=== PATIENT | female | born 1990 | race Two or more races ===

== ENCOUNTER 2020-11-27 20:21 | Emergency (ER) | payer SELFPAY ==
[~2020-11-27] VITALS: Ht 170.2 cm; Wt 65.0 kg
[~2020-11-27 20:21] MED LIST: ACET-704 PO; IBUP-1060 PO; PREN1TAB86 PO
[2020-11-27 21:13] VITALS: BP 108/60
--- NOTE | 2020-11-28 00:45 | PHYS DOC ---
Past Medical History Past Surgical History: No Surgical History (SAADIA SALOMON APRN) General Adult EDM: Chief Complaint: VAGINAL BLEEDING HPI: HPI: Patient is a 30 year old female who presents with fell last week she has been having scant lopez of blood in her underwear and then today began having lower abdominal pain cramping that she rates at a 7 out of 10 with menstrual type amount of bleeding. She is not going through more than one pad an hour. She has not taken anything for her abdominal discomfort. Last menstrual period was October 14. She denies nausea, vomiting, fever, concern for STD, urinary symptom, chest pain, shortness of breath, headache, dizziness. This is her fifth . She has 3 living children with uncomplicated pregnancies. She had one miscarriage with the very first . 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 (SAADIA SALOMON APRN) Review of Systems: Review of Systems: Constitutional: Denies fever or chills. [] Eyes: Denies change in visual acuity. [] HENT: Denies nasal congestion or sore throat. [] Respiratory: Denies cough or shortness of breath. [] Cardiovascular: Denies chest pain or edema. [] GI: + Lower abdominal pain, denies nausea, vomiting, bloody stools or diarrhea. [] : Denies dysuria. + Vaginal bleeding [] Musculoskeletal: Denies back pain or joint pain. [] Integument: Denies rash. [] Neurologic: Denies headache, focal weakness or sensory changes. [] Endocrine: Denies polyuria or polydipsia. [] Lymphatic: Denies swollen glands. [] Psychiatric: Denies depression or anxiety. [] (SAADIA SALOMON APRN) Heart Score: C/O Chest Pain: No (SAADIA SALOMON AMORTIZATION CLERK) Allergies: Allergies: Allergies Coded Allergies Type Severity Reaction Last Updated Verified No Known Drug Allergies 12/06/14 No (SAADIA SALOMON AMORTIZATION CLERK) Physical Exam: PE: Constitutional: Well developed, well nourished, no acute distress, non-toxic appearance. [] HENT: Normocephalic, atraumatic, bilateral external ears normal, oropharynx moist, no oral exudates, nose normal. [] Eyes: PERRLA, EOMI, conjunctiva normal, no discharge. [] Neck: Normal range of motion, no tenderness, supple, no stridor. [] Cardiovascular:Heart rate regular rhythm, no murmur [] Lungs & Thorax: Bilateral breath sounds clear to auscultation [] Abdomen: Bowel sounds normal, soft, no tenderness, no masses, no pulsatile masses. [] Skin: Warm, dry, no erythema, no rash. [] Back: No tenderness, no CVA tenderness. [] Extremities: No tenderness, no cyanosis, no clubbing, ROM intact, no edema. [] Neurologic: Alert and oriented X 3, normal motor function, normal sensory function, no focal deficits noted. [] Psychologic: Affect normal, judgement normal, mood normal. [] Normal physical exam (SAADIA SALOMON APRN) Current Patient Data: Vital Signs: Vital Signs Date Time Temp Pulse Resp B/P (MAP) Pulse Ox O2 Delivery O2 Flow Rate FiO2 11/27/20 21:13 98.4 67 18 108/60 (76) 100 Room Air 98.4 (SAADIA SALOMON APRN) EKG: EKG: [] (SAADIA SALOMON APRN) Radiology/Procedures: Radiology/Procedures: [] (SAADIA SALOMON APRN) Impression: [id number] [facility] [place], [place] [id number] IMAGING REPORT Signed PATIENT: ARIEL PAULSON ACCOUNT: [id number] : 1990 LOCATION: ER AGE: 30 SEX: F EXAM STATUS: REG ER ORD. PHYSICIAN: SAADIA SALOMON APRN REASON: vaginasl bleeding in . LMP 10/14 PROCEDURE: OB TRANSVAG CLINICAL HISTORY: Reason: vaginasl bleeding in . LMP 10/14 / Spl. Instructions: / History: COMPARISON: None available. TECHNIQUE: transabdominal and endovaginal sonography was performed FINDINGS: An intrauterine gestational sac is present, normal in appearance. An embryo is identified .Cardiac activity is visualized and documented at a rate of 117 beats per minute. There is no subchorionic fluid collection. Based on a crown rump length averaging 0.45 cm, the estimated gestational age is 6 weeks, 1 days. Estimated date of delivery is 07/23/2021. The right ovary measures 2.7 x 1.6 x 1.5 cm. Left ovary was not visualized. There is no pelvic free fluid. IMPRESSION: 1. Single live intrauterine gestation with mean sonographic age of 6 weeks,1 days. The estimated date of delivery is 07/23/2021. Electronically signed by: Kareem Leonardo MD (11/28/2020 2:22 AM) [facility] DICTATED and SIGNED BY: KAREEM LEONARDO MD DATE: 11/28/20 [id number] 0 (EDA MITCHELL MD) Course & Med Decision Making: Course & Med Decision Making Pertinent Labs and Imaging studies reviewed. (See chart for details) See HPI. Alert and oriented x4. Ambulatory steady gait. Skin pink warm and dry. Abdomen soft and nontender. No CVA tenderness. Cap refill less than 2 sec. Vital signs within normal limits. 0[address] Patient signed off to Dr Mitchell. [] (SAADIA SALOMON APRN) Course & Med Decision Making I received this patient in signout. Reviewed she is -0-1-3, Rh+ patient with LMP of 8/15 (5 weeks, 6 days by LMP) who presents with vaginal bleeding and lower abdominal cramping. She is afebrile and hemodynamically stable on arrival. No evidence of anemia. She is Rh+, so RhoGam is not indicated. Ultrasound shows a viable uterine consistent with dates. Heart rate 117. Beta-hCG 35,000. This appears to be a threatened miscarriage, and will require close OB follow- up. Will provide with follow-up with our OB on-call. Return precautions for worsening bleeding, presyncope/lightheadedness, chest pain, or worsening lower abdominal pain. (EDA MITCHELL MD) Dragon Disclaimer: Dragon Disclaimer: This electronic medical record was generated, in whole or in part, using a voice recognition dictation system. (SAADIA SALOMON APRN) Departure Departure Impression: Primary Impression: Threatened miscarriage in early Disposition: HOME / SELF CARE / HOMELESS Condition: STABLE Referrals: NO PCP (PCP) JAYLEN LEE MD Schedule an appointment. Patient Instructions: Threatened Miscarriage Additional Instructions: Your US and labwork was reassuring. You will need to follow up closely with an OB doctor. Return to the emergency department if bleeding worsens, you feel lightheaded, or you pain worsens. SAADIA SALOMON APRN Nov 28, 2020 00:45 EDA MITCHELL MD Nov 28, 2020 02:42
[2020-11-28] MEDS ORDERED: ACETAMINOPHEN 500 MG TABLET PO ONE (01:00)
[2020-11-28 01:42] LABS: BASO % 0 % (0-3); EOS # 0.1 x10^3/uL (0.0-0.7); EOS % 2 % (0-3); HEMATOCRIT 35.3 % (36.0-47.0); LYMPH % 31 % (24-48); MEAN CORPUSCULAR HEMOGLOBIN 29 pg (25-35); MEAN CORPUSCULAR HGB CONC 34 g/dL (31-37); MEAN CORPUSCULAR VOLUME 85 fL (79-100); MONO # 0.5 x10^3/uL (0.0-1.1); MONO % 8 % (0-9); NEUT # 3.8 x10^3/uL (1.8-7.7); NEUT % 59 % (31-73); PLATELET COUNT 204 x10^3/uL (140-400); RED BLOOD COUNT 4.15 x10^6/uL (3.50-5.40); RED CELL DISTRIBUTION WIDTH 14.7 % (11.5-14.5); WHITE BLOOD COUNT 6.5 x10^3/uL (4.0-11.0)
[2020-11-28 01:43] LABS: BILIRUBIN,URINE NEGATIVE (NEG); CLARITY,URINE CLOUDY; COLOR,URINE YELLOW; NITRITE,URINE NEGATIVE (NEG); PROTEIN,URINE NEGATIVE (NEG-TRACE); UROBILINOGEN,URINE 0.2 mg/dL (0.2 mg/dL)
[2020-11-28 01:52] LABS: CALCIUM 8.3 mg/dL (8.5-10.1); CREATININE 0.6 mg/dL (0.6-1.0); GFR 116.6; POTASSIUM 3.7 mmol/L (3.5-5.1)
[2020-11-28 01:55] LABS: AMORPHOUS SEDIMENT,UR PRESENT /HPF; BACTERIA,URINE FEW /HPF (0-FEW)
[2020-11-28 01:58] LABS: ALBUMIN 3.5 g/dL (3.4-5.0); ALBUMIN/GLOBULIN RATIO 1.1 (1.0-1.7); TOTAL BILIRUBIN 0.3 mg/dL (0.2-1.0); TOTAL PROTEIN 6.8 g/dL (6.4-8.2)
--- NOTE | 2020-11-28 02:24 | RAD ---
CLINICAL HISTORY: Reason: vaginasl bleeding in . LMP 10/14. Instructions: / History: COMPARISON: None available. TECHNIQUE: transabdominal and endovaginal sonography was performed FINDINGS: An intrauterine gestational sac is present, normal in appearance. An embryo is identified .Cardiac activity is visualized and documented at a rate of 117 beats per minute. There is no subchorionic flu id collection. Based on a crown rump length averaging 0.45 cm, the estimated gestational age is 6 weeks, 1 days. Es timated date of delivery is 07/23/2021. The right ovary measures 2.7 x 1.6 x 1.5 cm. Left ovary was not visualized. There is no pelvic free fluid. IMPRESSION: 1. Single live intrauterine gestation with mean sonographic age of 6 weeks,1 days. The estimated da te of delivery is 07/23/2021. Electronically signed by: Kareem Dutta MD (11/28/2020 2:22 AM) [facility]
== END 2020-11-28 03:41 | disposition home or self-care (01) ==
LOC: ER 20:21
DX: O20.0 Threatened abortion (principal); Z3A.01 Less than 8 weeks gestation of pregnancy
CPT/HCPCS: 36415; 76817; 80053; 81001; 81025; 84702; 85025; 86850; 86900; 86901; 87086; 99284